=== PATIENT | female | born 1990 ===

== ENCOUNTER 2018-10-12 10:26 | Emergency (ER) | payer OTHER ==
[2018-10-12 11:04] VITALS: TEMP 98.5
[2018-10-12] MEDS ORDERED: Sodium Chloride 0.9% 1,000 ML IV STA (13:25)
--- NOTE | 2018-10-12 14:09 | ED PDOC ---
HPI: Headache Time Seen by Provider: 10/12/18 12:47 Chief Complaint (Nursing): Headache Chief Complaint (Provider): Headache History Per: Patient History/Exam Limitations: no limitations Onset/Duration Of Symptoms: Days (4) Current Symptoms Are (Timing): Still Present Preceeding Symptoms: denies: Visual Disturbances, Known Migraine Symptoms Associated Symptoms: Photophobia, Nausea. denies: Blurred Vision, Vomiting, Extremity Weakness Additional History Per: Patient Additional Complaint(s): 28yo female, , EGA of 12wks, comes to ER for evaluation of an occipital headache x 4 days. She states he headache is constant, waxes and wanes but she does not have full relief; states the pain is 8/10 at works and unrelieved with Tylenol 1x per day. She states she did not take any additional medication as she was worried due to her ; also states she has been doing aromatherapy with minimal relief. She reports photophobia and nausea, but otherwise denies any vomiting, vision changes, or gait changes. No additional complaints. PMD: Sohail Mora Past Medical History Reviewed: Historical Data, Nursing Documentation, Vital Signs Vital Signs: Last Vital Signs Temp 98.5 F 10/12/18 10:59 Pulse 64 10/12/18 10:59 Resp 17 10/12/18 10:59 BP 121/71 10/12/18 10:59 Pulse Ox 99 10/12/18 10:59 - Medical History PMH: No Chronic Diseases - Surgical History Surgical History: No Surg Hx - Family History Family History: States: No Known Family Hx - Allergies Allergies/Adverse Reactions: Allergies Allergy/AdvReac Type Severity Reaction Status Date / Time No Known Allergies Allergy Verified 10/12/18 10:58 Review of Systems Constitutional: Negative for: Weakness Eyes: Negative for: Vision Change Gastrointestinal: Positive for: Nausea Neurological: Positive for: Headache. Negative for: Weakness, Numbness, Dizziness Physical Exam - Reviewed Nursing Documentation Reviewed: Yes Vital Signs Reviewed: Yes - Physical Exam Appears: Positive for: Non-toxic, No Acute Distress Head Exam: Positive for: ATRAUMATIC, NORMAL INSPECTION, NORMOCEPHALIC Skin: Positive for: Normal Color Eye Exam: Positive for: Normal appearance, EOMI, PERRL Neck: Positive for: Normal, Supple Cardiovascular/Chest: Positive for: Regular Rate, Rhythm Respiratory: Positive for: Normal Breath Sounds Extremity: Positive for: Normal ROM. Negative for: Deformity Neurological/Psych: Positive for: Awake, Alert, Symmetric/Intact Strength, Oriented (x 3), Gait (steady), simplex operator II-XII (intact), Other (symmetric smile). Negative for: Lethargic, Motor/Sensory Deficits, Facial Droop - ECG O2 Sat by Pulse Oximetry: 99 (RA) Pulse Ox Interpretation: Normal Medical Decision Making Medical Decision Makinyo female, otherwise well, presents with headache Plan: -- Tylenol 975mg PO -- IV Fluids 1508 On reassessment, patient states she feels much better and reports her headache is now 3/10 compared to 8. Advised patient to increase fluid intake as she may be dehydrated, and also informed to take additional Tylenol as needed for pain management. Patient expresses understanding of instructions and is stable for discharge home. Scribe Attestation: Documented by Melia Jose, acting as a scribe for LAURA Nieto. Provider Scribe Attestation: All medical record entries made by the Scribe were at my direction and personally dictated by me. I have reviewed the chart and agree that the record accurately reflects my personal performance of the history, physical exam, medical decision making, and the department course for this patient. I have also personally directed, reviewed, and agree with the discharge instructions and disposition. Disposition - Clinical Impression Clinical Impression: Headache, Headache in - Disposition Referrals: Ramesh Infante MD [Medical Doctor] - Disposition: Routine/Home Disposition Time: 15:08 Condition: STABLE Additional Instructions: Follow up with your primary care doctor for further treatment of headache. Hydrate as much as possible and take Tylenol 1000mg up to every 4 hours as needed for the pain. Return to ER if pain worsens significantly or you have weakness on one side of your body, trouble with your speech. Instructions: Headache, Adult (DC) Forms: [employer] (Pashto) Print Language: BRITISH
[2018-10-12 15:18] VITALS: BP 105/67; PULSE 62; RESP 18
[2018-10-12 15:24] VITALS: O2SAT 99
== END 2018-10-12 15:21 | disposition home or self-care (01) ==
LOC: H.ER 10:26
DX: O26.91 Pregnancy related conditions, unspecified, first trimester (principal); R51 Headache
CPT/HCPCS: 96360; 99285; J7030